=== PATIENT | male | born 1980 | race Two or more races ===

== ENCOUNTER 2018-05-19 09:17 | Day surgery (SDC) | payer OTHER ==
[~2018-05-19 09:17] MED LIST: ACETAMINOPHEN 1000 MG/100 ML IVPB; CEFAZOLIN 2 GM/50 ML (PMX) 50 ML IVPB; EPINEPHrine 1 MG INJ; SOD CHLORIDE 0.9% 1,000 ML IV
[2018-05-19 10:05] LABS: ADD MAN DIFF? NO
[2018-05-19 10:08] LABS: BASOPHILS % 0.5 % (0.0-2.0); EOSINOPHILS # 0.3 10^3/ul (0.0-0.5); EOSINOPHILS % 5.3 % (0.0-7.0); HEMATOCRIT 42.5 % (42.0-52.0); HEMOGLOBIN 13.7 g/dl (14.0-18.0); LYMPHOCYTES # 1.7 10^3/ul (0.8-2.9); LYMPHOCYTES % 26.7 % (15.0-51.0); MEAN CORPUSCULAR HEMOGLOBIN 25.8 pg (29.0-33.0); MEAN CORPUSCULAR HGB CONC 32.2 g/dl (32.0-37.0); MEAN PLATELET VOLUME 9.7 fl (7.4-10.4); MONOCYTE # 0.6 10^3/ul (0.3-0.9); NEUTROPHIL # 3.6 10^3/ul (1.6-7.5); NEUTROPHILS % 57.3 % (39.0-77.0); PLATELET COUNT 234 10^3/UL (140-415); RED BLOOD COUNT 5.31 10^6/ul (4.70-6.10); RED CELL DISTRIBUTION WIDTH 14.3 % (11.5-14.5)
[2018-05-19 10:08] LABS: WHITE BLOOD COUNT 6.2 10^3/ul (4.8-10.8)
[2018-05-19 10:27] LABS: INR 0.83; PARTIAL THROMBOPLASTIN TIME 26.2 Sec (23.0-35.0); PROTIME 11.5 Sec (11.9-14.9); PT RATIO 0.9
[2018-05-19 10:31] LABS: ALANINE AMINOTRANSFERASE 26 IU/L (13-69); ALBUMIN 4.4 g/dl (3.3-4.9); ALBUMIN/GLOBULIN RATIO 1.57; ALKALINE PHOSPHATASE 63 IU/L (42-121); ANION GAP 14 (8-16); ASPARTATE AMINO TRANSFERASE 24 IU/L (15-46); BILIRUBIN,INDIRECT 0.3 mg/dl (0-1.1); BILIRUBIN,TOTAL 0.3 mg/dl (0.2-1.3); BLOOD UREA NITROGEN 18 mg/dl (7-20); CALCIUM 9.2 mg/dl (8.4-10.2); CARBON DIOXIDE 25 mmol/L (21-31); CHLORIDE 108 mmol/L (97-110); CREATININE 0.81 mg/dl (0.61-1.24); GLUCOSE 97 mg/dl (70-220); POTASSIUM 4.3 mmol/L (3.5-5.1); SODIUM 143 mmol/L (135-144); TOTAL PROTEIN 7.2 g/dl (6.1-8.1)
[2018-05-19] MEDS ORDERED: SUCCINYLCHOLINE CHLORIDE 100 MG/5 ML SYG IV (13:26)
[2018-05-19] MEDS ORDERED: LIDOCAINE 2% (SDV) 5 ML INJ (13:26)
[2018-05-19] MEDS ORDERED: PROPOFOL 20 ML (13:26)
[2018-05-19] MEDS ORDERED: FENTAnyl 50 MCG/ML VIAL (13:26)
[2018-05-19] MEDS ORDERED: ROCURONIUM 50 MG INJ (13:26)
[2018-05-19] MEDS ORDERED: MIDAZOLAM 1 MG/ML 2 ML INJ (13:27)
[2018-05-19] MEDS ORDERED: HYDROmorphONE 1 MG/5 ML IV SYRINGE IV (13:30)
[2018-05-19] MEDS ORDERED: DIPHENHYDRAMINE 50 MG INJ IV (13:30)
[2018-05-19] MEDS ORDERED: OXYCODONE/ACETAMINOPHEN (5/325) TAB PO (13:30)
[2018-05-19] MEDS ORDERED: FENTAnyl 50 MCG/ML VIAL IV ×2 (13:30)
[2018-05-19] MEDS ORDERED: PROCHLORPERAZINE 10 MG INJ IV (13:30)
[2018-05-19] MEDS ORDERED: ROPIVACAINE 0.5 % 30 ML VIAL (13:37)
[2018-05-19] MEDS ORDERED: CEFAZOLIN 1 GM INJ (13:50)
[2018-05-19] MEDS ORDERED: ONDANSETRON 4 MG INJ (13:51)
[2018-05-19] MEDS ORDERED: DEXAMETHASONE 4 MG/ML 1 ML INJ (13:51)
[2018-05-19] MEDS ORDERED: FAMOTIDINE 20 MG INJ (13:51)
[2018-05-19] MEDS: POLYMYXIN/BACITRACIN 1L IRRIG (13:55)
[2018-05-19] MEDS ORDERED: SUGAMMADEX SODIUM 200 MG/2 ML VIAL IV ×2 (14:03→14:10)
[2018-05-19] MEDS: HYDROmorphONE 1 MG/5 ML IV SYRINGE IV ×2 (14:30→14:38)
[2018-05-19] MEDS ORDERED: traMADol 50 MG TAB PO (14:30)
[2018-05-19] MEDS: ONDANSETRON 4 MG INJ IV (14:30)
[2018-05-19] MEDS: KETOROLAC 30 MG INJ IV (14:31)
[2018-05-19] MEDS: MEPERIDINE 25 MG INJ IV (14:31)
[2018-05-19] MEDS: FENTAnyl 50 MCG/ML VIAL IV ×2 (14:38→14:48)
== END 2018-05-19 16:02 | disposition home or self-care (01) ==
LOC: SDS 09:17
DX: K40.30 Unilateral inguinal hernia, with obstruction, without gangrene, not specified as recurrent (principal)
CPT/HCPCS: 49507; 80053; 85025; 85610; 85730